=== PATIENT | male | born 1960 | race Caucasian/White ===

== ENCOUNTER 2017-08-30 20:39 | Observation (INO) | payer OTHER, SELFPAY ==
[2017-08-30 20:57] LABS: #Basophils 0.1 thou/uL (0.0-0.2); #Eosinphils 0.3 thou/uL (0.0-0.7); #Lymphocytes 2.1 thou/uL (1.20-3.40); #Monocytes 0.7 thou/uL (0.11-0.59); #Neutrophils 4.2 thou/uL (1.40-6.50); %Basophils 0.9 % (0.0-1.0); %Eosinophils 3.9 % (0.0-10.0); %Lymphocytes 27.9 % (21.0-51.0); %Monocytes 9.8 % (0.0-10.0); %Neutrophils 57.5 % (42.0-75.0); Hemoglobin 16.9 g/dL (14.0-18.0); Mean Corpuscular Hemoglobin 32.8 pg (27.0-31.0); Mean Corpuscular Volume 93.6 fl (80.0-94.0); Mean Platelet Volume 7.1 fL (7.4-10.4); Platelet Count 215 thou/uL (130-400); RBC Distribution Width 12.9 % (11.5-14.5); Red Blood Cell (RBC) Count 5.16 mill/uL (4.70-6.10); White Blood Cell (WBC) Count 7.3 thou/uL (4.8-10.8)
[2017-08-30 21:17] LABS: ALT (SGPT) 39 U/L (8-55); AST (SGOT) 24 U/L (5-34); Albumin 4.3 g/dL (3.5-5.0); Alkaline Phosphatase 89 U/L (40-150); Anion Gap 15 mmol/L (10-20); BUN (Urea Nitrogen) 23 mg/dL (8.4-25.7); Bilirubin, Total 0.5 mg/dL (0.2-1.2); Calc. Creatinine Clearance 0 mL/min (70-130); Calcium 9.7 mg/dL (7.8-10.44); Carbon Dioxide 24 mmol/L (22-29); Chloride 107 mmol/L (98-107); Estimated GFR-MDRD 61; Globulin 2.6 g/dL (2.4-3.5); Glucose 104 mg/dL (70-105); Potassium 4.2 mmol/L (3.5-5.1); Protein, Total 6.9 g/dL (6.0-8.3); Sodium 142 mmol/L (136-145)
[2017-08-30 21:20] LABS: CKMB 2.8 ng/mL (0-6.6); Troponin I Less than 0.010 ng/mL (< 0.028)
--- NOTE | 2017-08-30 21:21 | RAD ---
SINGLE VIEW OF THE CHEST: 08/30/17 COMPARISON: None. HISTORY: Chest pain. FINDINGS: Single view of the chest shows a normal sized cardiomediastinal silhouette. There is no evidence of c onsolidation, mass, or pleural effusion. The bones are unremarkable. IMPRESSION: No evidence of acute cardiopulmonary disease. POS: [facility]
[2017-08-30] MEDS ORDERED: Acetaminophen 325 MG TAB PO PRN (23:01)
[2017-08-30 23:16] VITALS: BMI 32.6
[2017-08-31 00:10] LABS: Troponin I Less than 0.010 ng/mL (< 0.028)
[2017-08-31] MEDS ORDERED: hydrALAZINE 20 MG/ML VIAL SLOW IVP PRN (02:07)
[2017-08-31] MEDS ORDERED: Nitroglycerin 0.4 MG TAB (25 Tab Bottle) PO PRN (02:07)
[2017-08-31] MEDS ORDERED: Milk Of Magnesia 30 ML UDCUP PO PRN (02:07)
[2017-08-31] MEDS ORDERED: Mag-Al 1200 mg/1200 mg/30 ML UDCUP PO PRN (02:07)
[2017-08-31] MEDS ORDERED: Ondansetron ODT 4 MG TAB PO PRN (02:07)
[2017-08-31] MEDS ORDERED: Ondansetron HCl/PF 4 MG/2 ML Vial IVP PRN (02:07)
[2017-08-31] MEDS ORDERED: Acetaminophen 325 MG TAB PO PRN (02:07)
--- NOTE | 2017-08-31 02:20 | HP ---
PRIMARY CARE PHYSICIAN: The patient does not have a primary care physician. CHIEF COMPLAINT: Chest pain. HISTORY OF PRESENT ILLNESS: Mr. Chanel is a pleasant 57-year-old gentleman that has no significan t past medical history other than kidney stones. He says that on last night or the night before last at around 6:00 p.m., he began having some pain on the left side of his chest. He says it was right underneath the collarbone. He says that it was off and on, but then became extremely intense by abou t 3:30 a.m. in the morning, but then it went away. The following day, it started up again at around 8:30 p.m. and this was the night of admission. He also had noticed some tingling in his left arm off and on actually 3 days prior to this. He says the pain at its worst was about 5-6/10. He had no as sociated symptoms such as shortness of breath. There was no nausea, no vomiting, no diaphoresis and he said that the quality of the pain was like a tightness. He was concerned because he had never had anything like this before. He says he tried moving his arm and turning his neck to see if it might have been a muscle strain, but it did not seem to make any difference. He also noticed some rapid he artbeats off and on, but he says this has been going on for 30 or 40 years. He has never sought [facility] attention about it, but he does not associate the palpitations with the chest pain. Currently, h is symptoms are much better. He says if anything, he may have just a mild 1/10 sensation of pain. REVIEW OF SYSTEMS: Constitutional: There have been no fevers, no chills, no night sweats, no weight loss. HEENT: He denies any headaches, no dizziness, no visual changes, no sore throat, rhinorrhea, neck pain, no adenopathy. Pulmonary: No hemoptysis, no cough, no wheezing. Cardiovascular: He de nies any PND, no orthopnea. No lower extremity edema. No dyspnea on exertion. No exertional pain. Gastrointestinal: No abdominal pain, no nausea, no vomiting, no change in bowels. Genitourinary: No urinary frequency, hematuria, no hesitancy. Neurologic: No focal weakness, numbness, no seizures . Psychiatric: No symptoms of anxiety or depression. Musculoskeletal: No muscle pains, weakness o r joint pains. Skin/Integument: No skin changes. No rash. PAST MEDICAL HISTORY: He has had history of nephrolithiasis. PAST SURGICAL HISTORY: He had a right femur fracture repair. ALLERGIES: No known drug allergies. SOCIAL HISTORY: He is single. He is a nonsmoker. He drinks about 6 beers a year. He has 2 young c hildren. He says to twins at age 23 years old. FAMILY HISTORY: Negative. MEDICATIONS: Currently, no medications. PHYSICAL EXAMINATION: GENERAL: He is alert and oriented. He appears to be in no acute distress. VITAL SIGNS: Blood pressure was 112/79, heart rate 75, respiratory rate of 16, temperature is 97.7, O2 sats 94% on room air. HEENT: Pupils are equal, round, and reactive. Extraocular muscles are intact. His sclerae are anic teric. Throat: There is no erythema, no exudates. NECK: No adenopathy, no bruits. LUNGS: Clear to auscultation. There was no wheezing, no rales bilaterally. CARDIOVASCULAR: He had a normal S1, S2. I did not appreciate an S3 or S4. No murmurs, clicks or ru bs. ABDOMEN: Obese, mildly distended. There is no rebound, no guarding. I could not appreciate any org anomegaly. EXTREMITIES: There is no clubbing, cyanosis, no edema. NEUROLOGICALLY: The exam is nonfocal. SIGNIFICANT LABORATORY: His EKG was sinus rhythm. There were no acute changes. His chemistry plan was completely normal with sodium of 142, potassium 4.2, chloride is 107, CO2 is 24, BUN of 23, creat inine 1.2, glucose is 104. Troponin is less than 0.010. White blood cell count 7.3, hemoglobin 16.9 , hematocrit is 48.3, platelet count is 215. D-dimer was less than 0.27 and he had a chest x-ray wit h no acute cardiopulmonary disease. ASSESSMENT AND PLAN: 1. This is a 57-year-old gentleman that presents to the emergency room with atypical chest pain of o ne that he says he has never experienced before. 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 He does not have any obvious risk factors for a heart disease other than being a male over 50 and also has some mild o besity. For this reason, he will be placed in observation. Continue to trend his cardiac enzymes an d get an exercise Cardiolite in the a.m. for further risk stratification as well as a lipid panel. 2. The patient has admitted that he has not seen a general physician in over 20 years. This was dis cussed as well that he should establish a primary care physician to get routine health maintenance, s uch as prostate and colon cancer screening as well as screening for blood pressure and diabetes, etc.
[2017-08-31] MEDS: Nitroglycerin 2% Ointment 1 INCH/1 GM Packet TOP SCH ×2 (02:28→16:03)
[2017-08-31 03:19] LABS: Calcium 9.5 mg/dL (7.8-10.44); Chloride 106 mmol/L (98-107); Potassium 3.8 mmol/L (3.5-5.1); Sodium 138 mmol/L (136-145)
[2017-08-31 03:20] LABS: Glucose 112 mg/dL (70-105); Triglycerides 262 mg/dL (Less than 150)
[2017-08-31 03:21] LABS: Anion Gap 10 mmol/L (10-20); Carbon Dioxide 26 mmol/L (22-29); Troponin I Less than 0.010 ng/mL (< 0.028)
[2017-08-31 03:22] LABS: #Basophils 0.1 thou/uL (0.0-0.2); #Eosinphils 0.4 thou/uL (0.0-0.7); #Lymphocytes 2.3 thou/uL (1.20-3.40); #Monocytes 0.7 thou/uL (0.11-0.59); #Neutrophils 3.5 thou/uL (1.40-6.50); %Basophils 0.8 % (0.0-1.0); %Eosinophils 5.2 % (0.0-10.0); %Monocytes 9.5 % (0.0-10.0); %Neutrophils 50.6 % (42.0-75.0); Mean Corpuscular HGB CONC 34.2 g/dL (32.0-36.0); Mean Corpuscular Volume 96.6 fl (80.0-94.0); Mean Platelet Volume 7.3 fL (7.4-10.4); Platelet Count 200 thou/uL (130-400); RBC Distribution Width 12.9 % (11.5-14.5); Red Blood Cell (RBC) Count 4.85 mill/uL (4.70-6.10); White Blood Cell (WBC) Count 6.8 thou/uL (4.8-10.8)
[2017-08-31 03:23] LABS: Calc. Creatinine Clearance 110 mL/min (70-130); Estimated GFR-MDRD 72
[2017-08-31 03:24] LABS: BUN (Urea Nitrogen) 25 mg/dL (8.4-25.7)
[2017-08-31 03:25] LABS: Cardiac Risk 6.2 (Less than 4.5); Cholesterol 168 mg/dl (< 200 Desired); HDL Cholesterol 27 mg/dL (>60 Neg Risk); LDL Cholesterol, Calculated 89 mg/dL
[2017-08-31] MEDS ORDERED: Aspirin 325 MG TAB PO SCH ×2 (08:00)
[2017-08-31 15:20] VITALS: BP 133/88; TEMP 97.4
--- NOTE | 2017-08-31 16:05 | NM ---
NUCLEAR MEDICINE CARDIAC PERFUSION EXAMINATION WITH EJECTION FRACTION 08/31/17 HISTORY: 57-year-old male with chest pain. TECHNIQUE: A single day nuclear medicine cardiac perfusion examination was performed. The resting images were ob tained using 9 millicuries technetium 99m Sestamibi. Stress images were obtained given 30 millicuries of technetium 99m Sestamibi at the peak exercise on a treadmill using a Gabriel protocol. The patient achieved greater than 85% maximum predicted heart rate. FINDINGS: Tomographic images showed no fixed or reversible perfusion defects. Gated images showed normal wall m otion with ejection fraction of greater than 70%. EDV is 68 mL. LHR is 0.4. TID is 0.8. IMPRESSION: No evidence of ischemia. POS: [facility]
--- NOTE | 2017-08-31 16:54 | DIS ---
TRANSFER OF CARE NOTE DATE OF ADMISSION: 08/31/2017 DATE OF DISCHARGE: 08/31/2017 PRIMARY CARE PROVIDER: No PCP. FINAL DIAGNOSIS: Atypical chest pain. DISCHARGE MEDICATIONS: None. PENDING AT THE TIME OF DISCHARGE: Nothing. CODE STATUS: FULL. DIET: Regular. HOSPITAL COURSE: The patient admitted to the hospital for atypical chest pain, left subclavicular of multiple days duration. Two CBCs were normal. Comp metabolic profile was normal. Cardiac enzymes were normal x3. Cholesterol is 168, LDL 89, HDL 27. D-dimer is less than 0.27. Nuclear medicine st ress test was normal. At the time of discharge, situation was discussed with the patient. Vital sig ns are stable. His cardiorespiratory exam is normal and he is comfortable with being discharged. He has no PCP and I have urged him to obtain one. CONSULTATIONS: None. PROCEDURES: None.
== END 2017-08-31 17:20 | disposition home or self-care (01) ==
LOC: ERS 20:39 → 2SW 22:05
PROVIDERS: ADMIT Internal Medicine; ATTEND Internal Medicine
DX: R07.89 Other chest pain (principal)
CPT/HCPCS: 36415; 71045; 78452; 80048; 80053; 80061; 82553; 84484; 85025; 85379; 93005; 93017; 94760; A9500; G0378

== ENCOUNTER 2019-03-01 13:30 | Emergency (ER) | payer OTHER ==
[2019-03-01 14:29] LABS: #Basophils 0.1 thou/uL (0.0-0.2); #Eosinphils 0.3 thou/uL (0.0-0.7); #Lymphocytes 1.6 thou/uL (1.20-3.40); #Monocytes 0.5 thou/uL (0.11-0.59); #Neutrophils 5.1 thou/uL (1.40-6.50); %Basophils 0.7 % (0.0-1.0); %Eosinophils 4.5 % (0.0-10.0); %Lymphocytes 21.3 % (21.0-51.0); %Monocytes 6.7 % (0.0-10.0); %Neutrophils 66.8 % (42.0-75.0); Hemoglobin 17.2 g/dL (14.0-18.0); Mean Corpuscular HGB CONC 34.8 g/dL (32.0-36.0); Mean Corpuscular Hemoglobin 32.6 pg (27.0-31.0); Mean Corpuscular Volume 93.5 fL (78.0-98.0); Mean Platelet Volume 7.9 fL (7.4-10.4); Platelet Count 176 thou/uL (130-400); RBC Distribution Width 12.7 % (11.5-14.5); Red Blood Cell (RBC) Count 5.28 mill/uL (4.70-6.10); White Blood Cell (WBC) Count 7.6 thou/uL (4.8-10.8)
[2019-03-01] MEDS ORDERED: Ketorolac Tromethamine 30 MG/ML VIAL ONE (14:29)
[2019-03-01] MEDS ORDERED: Ondansetron PF 4 MG/2 ML Vial ONE (14:29)
[2019-03-01] MEDS ORDERED: Morphine 4 MG/ML VIAL ONE (14:29)
[2019-03-01 14:51] LABS: ALT (SGPT) 78 U/L (8-55); AST (SGOT) 41 U/L (5-34); Albumin 4.2 g/dL (3.5-5.0); Alkaline Phosphatase 113 U/L (40-110); Anion Gap 12 mmol/L (10-20); BUN (Urea Nitrogen) 19 mg/dL (8.4-25.7); Bilirubin, Total 0.4 mg/dL (0.2-1.2); Calc. Creatinine Clearance 0 mL/min (70-130); Calcium 9.4 mg/dL (7.8-10.44); Carbon Dioxide 24 mmol/L (22-29); Chloride 106 mmol/L (98-107); Estimated GFR-MDRD 64; Globulin 2.8 g/dL (2.4-3.5); Glucose 114 mg/dL (70-105); Lipase 45 U/L (8-78); Potassium 4.1 mmol/L (3.5-5.1); Sodium 138 mmol/L (136-145)
--- NOTE | 2019-03-01 15:14 | CT ---
CT abdomen and pelvis noncontrast HISTORY: Left flank pain. COMPARISON: 03/15/2016. FINDINGS: Mild atelectasis at the lung bases. There is moderate distention of the left renal collecti ng system to the level of an oval calculus that is 7 mm length by 5 mm axial diameter in the proximal left ureter. Stranding in the left perinephric fat. The left ureter beyond this point is dec ompressed. Tiny calcification is present within the calyces of the superior pole left kidney. Right renal collecting system, ureter, and urinary bladder are decompressed. 2 adjacent lobular calci fications within nondilated calyces of the superior pole of the left kidney are present. The larger measures up to 9 mm. Lack of contrast limits evaluation for other abnormalities. Liver is diffusely hypodense. No evidence of bowel obstruction. IMPRESSION: Partial obstruction at a 5 mm x 7 mm proximal left ureteral calculus. Additional bilateral renal calculi, measuring up to 9 mm in the right kidney. Hepatosteatosis
[2019-03-01 15:26] LABS: Bacteria/HPF None Seen HPF (None Seen); Bilirubin Negative (Negative); Blood, Urine 1+ (Negative); Calcium Oxalate Crystals 2+ HPF (None Seen); Clarity Clear (Clear); Glucose, Urine (Dipstick) Normal (Negative); Leukocyte Negative Leu/uL (Negative); Nitrite Negative (Negative); Protein, Urine (Dipstick) 20 mg/dL (Neg-Trace); RBC/HPF 21-50 HPF (0-3); Squamous Epithelial None Seen HPF (0-3); Urobilinogen Normal mg/dL (Less than 2)
== END 2019-03-01 16:21 | disposition home or self-care (01) ==
LOC: ERS 13:30
DX: N20.2 Calculus of kidney with calculus of ureter (principal)
CPT/HCPCS: 74176; 80053; 81003; 81015; 83690; 85025; 87086; 96361; 96374; 96375; J1885; J2270; J2405

== ENCOUNTER 2019-03-07 02:07 | Emergency (ER) | payer OTHER ==
[2019-03-07 02:57] LABS: #Basophils 0.1 thou/uL (0.0-0.2); #Eosinphils 0.5 thou/uL (0.0-0.7); #Lymphocytes 2.2 thou/uL (1.20-3.40); #Monocytes 0.7 thou/uL (0.11-0.59); %Basophils 0.7 % (0.0-1.0); %Lymphocytes 26.3 % (21.0-51.0); %Monocytes 8.5 % (0.0-10.0); %Neutrophils 58.5 % (42.0-75.0); Hemoglobin 15.5 g/dL (14.0-18.0); Mean Corpuscular HGB CONC 35.2 g/dL (32.0-36.0); Mean Corpuscular Hemoglobin 33.7 pg (27.0-31.0); Mean Corpuscular Volume 95.7 fL (78.0-98.0); Mean Platelet Volume 7.3 fL (7.4-10.4); Platelet Count 213 thou/uL (130-400); RBC Distribution Width 12.6 % (11.5-14.5); Red Blood Cell (RBC) Count 4.61 mill/uL (4.70-6.10); White Blood Cell (WBC) Count 8.5 thou/uL (4.8-10.8)
[2019-03-07 02:59] LABS: Bacteria/HPF None Seen HPF (None Seen); Bilirubin Negative (Negative); Blood, Urine 3+ (Negative); Clarity Turbid (Clear); Glucose, Urine (Dipstick) Normal (Negative); Leukocyte 500 Leu/uL (Negative); Mucous/LPF 2+ LPF (<2+); Nitrite Negative (Negative); Protein, Urine (Dipstick) 50 mg/dL (Neg-Trace); RBC/HPF Greater than 50 HPF (0-3); Squamous Epithelial 0-3 HPF (0-3); Urobilinogen Normal mg/dL (Less than 2); WBC/HPF Greater than 50 HPF (0-3)
[2019-03-07 03:19] LABS: ALT (SGPT) 100 U/L (8-55); AST (SGOT) 38 U/L (5-34); Albumin 3.8 g/dL (3.5-5.0); Alkaline Phosphatase 131 U/L (40-110); Anion Gap 13 mmol/L (10-20); BUN (Urea Nitrogen) 26 mg/dL (8.4-25.7); Bilirubin, Total 0.4 mg/dL (0.2-1.2); Calc. Creatinine Clearance 0 mL/min (70-130); Calcium 9.2 mg/dL (7.8-10.44); Carbon Dioxide 23 mmol/L (22-29); Chloride 104 mmol/L (98-107); Estimated GFR-MDRD 48; Glucose 102 mg/dL (70-105); Potassium 3.8 mmol/L (3.5-5.1); Protein, Total 6.8 g/dL (6.0-8.3); Sodium 136 mmol/L (136-145)
--- NOTE | 2019-03-07 09:29 | RAD ---
SUPINE ABDOMEN: INDICATION: Abdominal pain. Hematuria. FINDINGS: Correlation is made to recent CT 03/01/2019. Calcification overlies the lower pole of the right kidney which was noted on the CT. A 2nd calcifica tion is now seen more medially and could potentially reside in the upper right ureter. This appears to have a new position when compared to the CT of 03/01/2019. Consider IVP. Bowel gas pattern unremarkable. No other change. IMPRESSION: Evidence of new position of a rounded 5 mm calcification when compared to CT of 03/01/2019. This cou ld potentially reside in the upper right ureter. CODE T
== END 2019-03-07 03:50 | disposition home or self-care (01) ==
LOC: ERS 02:07
DX: N20.1 Calculus of ureter (principal); R31.9 Hematuria, unspecified
CPT/HCPCS: 36415; 74018; 80053; 81003; 81015; 85025

== ENCOUNTER 2019-03-09 06:42 | Day surgery (SDC) | payer OTHER ==
[2019-03-09 07:04] LABS: #Eosinphils 0.2 thou/uL (0.0-0.7); #Lymphocytes 1.3 thou/uL (1.20-3.40); #Monocytes 0.7 thou/uL (0.11-0.59); #Neutrophils 8.4 thou/uL (1.40-6.50); %Basophils 0.4 % (0.0-1.0); %Eosinophils 2.2 % (0.0-10.0); %Lymphocytes 12.3 % (21.0-51.0); %Monocytes 6.2 % (0.0-10.0); %Neutrophils 78.9 % (42.0-75.0); Hemoglobin 16.5 g/dL (14.0-18.0); Mean Corpuscular HGB CONC 33.8 g/dL (32.0-36.0); Mean Corpuscular Hemoglobin 32.5 pg (27.0-31.0); Mean Corpuscular Volume 96.2 fL (78.0-98.0); Platelet Count 250 thou/uL (130-400); RBC Distribution Width 12.5 % (11.5-14.5); Red Blood Cell (RBC) Count 5.07 mill/uL (4.70-6.10); White Blood Cell (WBC) Count 10.7 thou/uL (4.8-10.8)
[2019-03-09 07:26] LABS: ALT (SGPT) 67 U/L (8-55); AST (SGOT) 26 U/L (5-34); Albumin 4.1 g/dL (3.5-5.0); Alkaline Phosphatase 129 U/L (40-110); Anion Gap 15 mmol/L (10-20); BUN (Urea Nitrogen) 24 mg/dL (8.4-25.7); Bilirubin, Total 0.3 mg/dL (0.2-1.2); Calc. Creatinine Clearance 0 mL/min (70-130); Carbon Dioxide 21 mmol/L (22-29); Chloride 106 mmol/L (98-107); Estimated GFR-MDRD 36; Globulin 3.1 g/dL (2.4-3.5); Glucose 132 mg/dL (70-105); Potassium 4.3 mmol/L (3.5-5.1); Protein, Total 7.2 g/dL (6.0-8.3); Sodium 138 mmol/L (136-145)
[2019-03-09] MEDS ORDERED: Morphine 4 MG/ML VIAL ONE ×3 (07:38→12:21)
[2019-03-09] MEDS ORDERED: Ondansetron PF 4 MG/2 ML Vial ONE ×2 (07:39→14:40)
[2019-03-09 07:42] LABS: Bilirubin Negative (Negative); Blood, Urine 2+ (Negative); Clarity Clear (Clear); Glucose, Urine (Dipstick) Normal (Negative); Leukocyte 25 Leu/uL (Negative); Nitrite Negative (Negative); Protein, Urine (Dipstick) Negative (Neg-Trace); Squamous Epithelial None Seen HPF (0-3); Urobilinogen Normal mg/dL (Less than 2)
[2019-03-09 07:43] LABS: Bacteria/HPF 1+ HPF (None Seen)
--- NOTE | 2019-03-09 08:40 | CT ---
ABDOMEN CT WITHOUT CONTRAST PELVIC CT WITHOUT CONTRAST: COMPARISON: 03/01/2019. HISTORY: The patient has known left-sided obstructive uropathy. Interval development of a right-sided flank p ain. FINDINGS: ABDOMEN CT: Lung bases are clear. Limited evaluation of the solid organs by lack of IV contrast. Stable hypoattenuation of the liver s uggesting areas of hepatic steatosis and fatty sparing. Grossly, the remaining solid organs are unre markable. Unremarkable gallbladder. No gastrohepatic, retrocrural, or periportal lymphadenopathy. No mesenteric mass, lymphadenopathy, free air, or free fluid. Limited evaluation of the alimentary canal by the lack of oral contrast. No evidence of bowel obstru ction. Ileocecal junction is unremarkable. Normal caliber appendix. Decompressed colon with scatte red fecal material. Interval migration of a calculus at the level of the proximal left ureter, now i n the left ureterovesicular junction. There is associated moderate left-sided obstructive uropathy. Punctate 2 mm calculus in the upper pole left kidney is noted. There is moderate right-sided obstructive uropathy secondary to interval passage of a calculus that w as in the intrauterine collecting system, and is now in the right ureteropelvic junction. This calcu justin measures 0.7 cm. Additional nonobstructing calculus in the right renal pelvis measures approxima tely 1.[address] PELVIS: Decompressed urinary bladder limits evaluation for inflammatory change. IMPRESSION: 1. Redemonstration of moderate left-sided obstructive uropathy secondary to a calculus that is now i n the left ureterovesicular junction. 2. Interval development of a moderate right-sided obstructive uropathy secondary to a calculus that is in the right ureteropelvic junction. POS: [facility]
[2019-03-09] MEDS ORDERED: ePHEDrine 50 MG/ML VIAL ONE (14:40)
[2019-03-09] MEDS ORDERED: Dexamethasone 20 MG/5 ML VIAL ONE (14:40)
[2019-03-09] MEDS ORDERED: PHENYLEPHRINE-NS 100 MCG/ML 10 ML SYRINGE ONE (14:40)
[2019-03-09] MEDS ORDERED: PROPOFOL 200 MG/20 ML VIAL ONE (14:40)
[2019-03-09] MEDS ORDERED: Lidocaine 1% PF 5 ML VIAL ONE (14:40)
[2019-03-09] MEDS ORDERED: Iothalamate Meglumine 60% 50 ML VIAL FS ONE (18:14)
[2019-03-09] MEDS ORDERED: Fentanyl 100 MCG/2 ML VIAL ONE (18:26)
[2019-03-09] MEDS ORDERED: Levofloxacin 500 mg/D5W 100 ml Premix Bag ONE (18:31)
[2019-03-09] MEDS ORDERED: Ondansetron HCl/PF 4 MG/2 ML Vial IVP PRN (19:47)
[2019-03-09] MEDS ORDERED: Promethazine HCl 25 MG/ML VIAL SLOW IVP PRN (19:47)
[2019-03-09] MEDS ORDERED: HYDROmorphone 2 MG/ML VIAL SLOW IVP PRN (19:47)
[2019-03-09] MEDS ORDERED: Promethazine HCl 25 MG/ML VIAL IM PRN (19:47)
[2019-03-09] MEDS ORDERED: PACU-Morphine 4MG/ML VIAL SLOW IVP PRN (19:47)
--- NOTE | 2019-03-09 20:30 | RAD ---
RETROGRADE IVP: CYSTOSCOPY WITH STONE REMOVAL: INDICATIONS: Imaging during retrograde procedure. TECHNIQUE: A single image is presented. FINDINGS: A single image showed bilateral double pigtail ureteral stents. There is partial opacification of the left upper collecting structures. I cannot exclude extravasation on this single view. POS: [facility]
--- NOTE | 2019-03-09 23:55 | CON ---
DATE OF CONSULTATION: 03/09/2019 REASON FOR CONSULTATION: Bilateral ureteral stones. HISTORY OF PRESENT ILLNESS: Mr. Chanel is a 58-year-old male with extensive history of urolithiasis in the past. He has seen multiple urologists including both Dr. Giacomo Lawrence and Dr. Jg Bautista within the past 6 years. The patient initially had left-sided flank pain approximately 10 days ago. The patient reports he passed a stone on the left side. He then had pain return. He began passing a stone on his right side. The patient presented to the emergency department multiple times over this. Most recently, today, he had acute onset of right flank pain associated with nausea and vomiting. CT scan demonstrated a left ureterovesical junction stone approximately 6 mm in diameter and a right ureteropelvic junction stone 0.7 cm in diameter, as well as an additional renal pelvis stone 1.4 cm in diameter. The patient also had acute kidney injury with a creatinine of 1.95. The patient intermittently has had pain throughout the day, which has been well controlled with IV narcotics. No fever or chills. No dysuria. No gross hematuria. He has no other complaints at this time. REVIEW OF SYSTEMS: Full 12-point review of systems was performed and is negative other than that mentioned in HPI. PAST MEDICAL HISTORY: Urolithiasis. PAST SURGICAL HISTORY: Femur surgery, multiple lithotripsies. FAMILY HISTORY: Noncontributory. SOCIAL HISTORY: No alcohol, no tobacco. He lives at home with his two 4-year-old sons. ALLERGIES: NO KNOWN DRUG ALLERGIES. MEDICATIONS: Motrin. PHYSICAL EXAMINATION: VITAL SIGNS: Afebrile. Vital signs are stable. GENERAL: He is alert and oriented x3. No apparent distress. HEENT: Normocephalic, atraumatic. NECK: Supple. No masses or lymphadenopathy. CARDIOVASCULAR: Regular rate and rhythm. PULMONARY: Breathing unlabored. ABDOMEN: Soft, nontender/nondistended. No masses or organomegaly. No suprapubic tenderness to palpation. No CVA tenderness. EXTREMITIES: Warm and well perfused. No edema. NEUROLOGIC: No focal deficits. RADIOLOGY DATA: CT of the abdomen and pelvis demonstrates the above stated findings. I have reviewed these images and I agree with the radiologist's interpretation. LABORATORY DATA: White blood cell count 10.7, hemoglobin 16.5, hematocrit 48.8, and platelets 250. Sodium 138, potassium 4.3, chloride 106, bicarb 21, BUN 24, and creatinine 1.95. ASSESSMENT: A 58-year-old male with bilateral ureteral stones and acute kidney injury. PLAN: I reviewed the natural history and clinical implications of bilateral ureterolithiasis with the patient in detail. He has what appears to be acute kidney injury with a creatinine of 1.95. I reviewed the size of both of the stones and explained that spontaneous passage is not likely given the fact that he has acute kidney injury and recommended urgent intervention. We will proceed with bilateral ureteral stent placement to temporize measures and he will require staged ureteroscopy with laser lithotripsy for management of the stones. After indications/risks/benefits/alternatives/possible outcomes were discussed with the patient in detail, he elects to proceed with aforementioned procedure. This will be performed later today. Job ID: [id number]
--- NOTE | 2019-03-10 00:27 | OP ---
DATE OF PROCEDURE: 03/09/2019 CHIEF DIGITAL MEDIA OFFICER: None. PREPROCEDURE DIAGNOSES: 1. Bilateral ureteral stones. 2. Acute kidney injury. POSTPROCEDURE DIAGNOSES: 1. Bilateral ureteral stones. 2. Acute kidney injury. PROCEDURES PERFORMED: 1. Left ureteroscopy with basket extraction of left ureteral stone. 2. Bilateral ureteral stent placement. 3. Manipulation of right ureteral stone into renal pelvis for treatment. ANESTHESIA: LMA anesthesia. COMPLICATIONS: None. FLUIDS: See anesthesia record. ESTIMATED BLOOD LOSS: Less than 2 mL. SPECIMENS: Left ureteral stone. POSTPROCEDURE STATUS: Satisfactory. INDICATIONS FOR PROCEDURE: Mr. Chanel is a 58-year-old male with history of urolithiasis in the past. The patient has had three separate ER visits for left-sided flank pain and then subsequently right-sided flank pain. The patient was diagnosed with bilateral ureteral stones. He also had acute kidney injury with a creatinine of 1.95, as well as intractable nausea. The patient elects to proceed with bilateral ureteral stent placement and possible ureteroscopy. DESCRIPTION OF PROCEDURE: The patient was taken to the operating room and after successful induction of LMA anesthesia, he was placed in the dorsal lithotomy position and his genitalia was prepped and draped in the usual sterile fashion. A time-out was performed, following which, a 21-Iranian rigid cystoscope was inserted in the patient's urethra and advanced into the bladder. His bladder was drained. The right ureteral orifice was identified and cannulated with a PTFE wire, which was a curl within the right renal pelvis under fluoroscopic guidance. There was a proximal right ureteral stone present at the ureteropelvic junction, as well as a large right renal pelvis stone. An open-ended ureteral catheter was placed over this up to the level of the right ureteropelvic junction and a retrograde pyelogram was performed through it. There were no filling defects other than aforementioned stones and no other concerning lesion. There was moderate hydronephrosis. The wire was replaced and the open-ended catheter was removed. Over the wire, we placed a 6-Iranian x 28 cm double-J ureteral stent and upon wire removal, a good curl was achieved proximally within the right renal pelvis and distally within the bladder. The patient's bladder was drained. Attention was then turned to the left side. We attempted to advance the PTFE wire beyond the distal left ureter, however, we were unable to do so secondary to the presence of this stone. At this point, we switched out to the semi-rigid ureteroscope and cannulated the left ureteral orifice. We identified the stone within the distal portion of the ureter. It was grasped with a ZeroTip basket and carefully extracted intact. We performed ureteroscopy all the way up to the left ureteropelvic junction. There were no other concerning lesions. A retrograde pyelogram was performed, which demonstrated moderate left hydronephrosis. We withdrew the ureteroscope inspecting the ureter as we did so. There was some edema and mucosal abrasion at the area, where the stone was located within the distal ureter. However, there was no significant damage to the ureter. The wire was curled within the left renal pelvis and the ureteroscope was removed. We first backloaded the cystoscope and then placed a 6-Iranian x 26 cm double-J ureteral stent and upon wire removal, a good curl was achieved within the left renal pelvis and distally within the bladder. The patient's bladder was drained. He tolerated the procedure well, was awoken from anesthesia, and transferred to the PACU in satisfactory condition. Job ID: [id number]
== END 2019-03-09 20:55 | disposition home or self-care (01) ==
LOC: ERS 06:42 → SDC 13:56
PROVIDERS: ATTEND Urology
PROC: 0WHR8YZ Insertion of Other Device into Genitourinary Tract, Via Natural or Artificial Opening Endoscopic (ICD-10-PCS; principal; 2019-03-09)
PROC: 0T788DZ Dilation of Bilateral Ureters with Intraluminal Device, Via Natural or Artificial Opening Endoscopic (ICD-10-PCS; principal; 2019-03-09)
PROC: 0TC78ZZ Extirpation of Matter from Left Ureter, Via Natural or Artificial Opening Endoscopic (ICD-10-PCS; principal; 2019-03-09)
DX: N13.2 Hydronephrosis with renal and ureteral calculous obstruction (principal); N17.9 Acute kidney failure, unspecified; Z88.8 Allergy status to other drugs, medicaments and biological substances
CPT/HCPCS: 36415; 74176; 74420; 80053; 81003; 81015; 82365; 85025; 88300; 96361; 96374; 96375; 96376; C1758; J1956; J2270; J2405; J3010

== ENCOUNTER 2019-03-29 10:37 | Emergency (ER) | payer OTHER ==
[2019-03-29 11:16] LABS: #Eosinphils 0.3 thou/uL (0.0-0.7); #Lymphocytes 1.8 thou/uL (1.20-3.40); #Monocytes 0.5 thou/uL (0.11-0.59); #Neutrophils 3.9 thou/uL (1.40-6.50); %Basophils 0.5 % (0.0-1.0); %Eosinophils 4.5 % (0.0-10.0); %Lymphocytes 27.4 % (21.0-51.0); %Monocytes 7.6 % (0.0-10.0); %Neutrophils 59.9 % (42.0-75.0); Hemoglobin 16.3 g/dL (14.0-18.0); Mean Corpuscular HGB CONC 34.5 g/dL (32.0-36.0); Mean Corpuscular Hemoglobin 32.9 pg (27.0-31.0); Mean Corpuscular Volume 95.4 fL (78.0-98.0); Mean Platelet Volume 7.6 fL (7.4-10.4); Platelet Count 186 thou/uL (130-400); RBC Distribution Width 12.8 % (11.5-14.5); Red Blood Cell (RBC) Count 4.96 mill/uL (4.70-6.10); White Blood Cell (WBC) Count 6.6 thou/uL (4.8-10.8)
[2019-03-29 11:17] LABS: Bilirubin Negative (Negative); Blood, Urine 3+ (Negative); Clarity Clear (Clear); Glucose, Urine (Dipstick) Normal (Negative); Leukocyte 250 Leu/uL (Negative); Nitrite Negative (Negative); Protein, Urine (Dipstick) 100 mg/dL (Neg-Trace); RBC/HPF 21-50 HPF (0-3); Squamous Epithelial None Seen HPF (0-3); Urobilinogen Normal mg/dL (Less than 2)
[2019-03-29 11:21] LABS: Bacteria/HPF 1+ HPF (None Seen)
[2019-03-29 11:47] LABS: ALT (SGPT) 39 U/L (8-55); AST (SGOT) 28 U/L (5-34); Albumin 4.2 g/dL (3.5-5.0); Alkaline Phosphatase 112 U/L (40-110); Anion Gap 14 mmol/L (10-20); BUN (Urea Nitrogen) 20 mg/dL (8.4-25.7); Bilirubin, Total 0.6 mg/dL (0.2-1.2); Calc. Creatinine Clearance 0 mL/min (70-130); Calcium 9.3 mg/dL (7.8-10.44); Carbon Dioxide 24 mmol/L (22-29); Chloride 108 mmol/L (98-107); Estimated GFR-MDRD 62; Glucose 95 mg/dL (70-105); Potassium 4.6 mmol/L (3.5-5.1); Protein, Total 7.2 g/dL (6.0-8.3); Sodium 141 mmol/L (136-145)
== END 2019-03-29 12:45 | disposition home or self-care (01) ==
LOC: ERS 10:37
DX: N20.1 Calculus of ureter (principal)
CPT/HCPCS: 80053; 81003; 81015; 85025; 99284

== ENCOUNTER 2022-06-07 14:27 | Emergency (ER) | payer OTHER, SELFPAY ==
[2022-06-07] MEDS ORDERED: Ketorolac Tromethamine 30 MG/ML VIAL ONE ×2 (15:09→15:45)
[2022-06-07] MEDS ORDERED: Ondansetron PF 4 MG/2 ML Vial ONE (15:09)
[2022-06-07] MEDS ORDERED: Morphine 4 MG/ML VIAL ONE (15:09)
[2022-06-07 15:17] LABS: #Basophils 0.1 thou/uL (0.0-0.2); #Eosinphils 0.1 thou/uL (0.0-0.7); #Monocytes 0.6 thou/uL (0.11-0.59); #Neutrophils 7.2 thou/uL (1.40-6.50); %Basophils 0.5 % (0.0-1.0); %Eosinophils 1.5 % (0.0-10.0); %Lymphocytes 19.8 % (21.0-51.0); %Monocytes 6.2 % (0.0-10.0); %Neutrophils 71.9 % (42.0-75.0); Hemoglobin 18.1 g/dL (14.0-18.0); Mean Corpuscular HGB CONC 33.9 g/dL (32.0-36.0); Mean Corpuscular Hemoglobin 32.3 pg (27.0-31.0); Mean Corpuscular Volume 95.3 fl (78.0-98.0); Platelet Count 218 10x3/uL (130-400); RBC Distribution Width 13.5 % (11.5-14.5); Red Blood Cell (RBC) Count 5.58 mill/uL (4.70-6.10)
[2022-06-07] MEDS ORDERED: Iopamidol-370 76% 500 ML 1 ML ONE (15:17)
[2022-06-07 15:38] LABS: ALT (SGPT) 29 U/L (8-55); AST (SGOT) 20 U/L (5-34); Albumin 4.5 g/dL (3.5-5.0); Alkaline Phosphatase 104 U/L (40-110); Anion Gap 12 mmol/L (10-20); BUN (Urea Nitrogen) 19 mg/dL (8.4-25.7); Bilirubin, Total 0.6 mg/dL (0.2-1.2); Calc. Creatinine Clearance 0 mL/min (70-130); Calcium 9.6 mg/dL (7.8-10.44); Carbon Dioxide 22 mmol/L (22-29); Chloride 107 mmol/L (98-107); Estimated GFR 68; Globulin 3.2 g/dL (2.4-3.5); Glucose 113 mg/dL (70-105); Potassium 3.9 mmol/L (3.5-5.1); Protein, Total 7.7 g/dL (6.0-8.3); Sodium 137 mmol/L (136-145)
[2022-06-07 15:54] LABS: Bacteria/HPF None Seen HPF (None Seen); Bilirubin Negative (Negative); Blood, Urine 2+ (Negative); Clarity Clear (Clear); Glucose, Urine (Dipstick) Normal (Negative); Ketone, Urine 40 mg/dL (Negative); Leukocyte Negative Leu/uL (Negative); Nitrite Negative (Negative); Protein, Urine (Dipstick) 10 mg/dL (Neg-Trace); RBC/HPF 21-50 HPF (0-3); Specific Gravity, Urine 1.024 (1.002-1.036); Squamous Epithelial None Seen HPF (0-3); Urobilinogen Normal mg/dL (Less than 2); WBC/HPF 0-3 HPF (0-3)
== END 2022-06-07 17:28 | disposition home or self-care (01) ==
LOC: ERS 14:27
DX: N13.2 Hydronephrosis with renal and ureteral calculous obstruction (principal); R31.9 Hematuria, unspecified
CPT/HCPCS: 36415; 74177; 80053; 81003; 81015; 85025; 96374; 96375; J1885; J2270; J2405; Q9967